=== PATIENT | male | born 1970 | race Caucasian/White ===

== ENCOUNTER 2024-06-06 12:30 | Emergency (ER) | payer BC, MEDICAID ==
[~2024-06-06] VITALS: Ht 180.3 cm; Wt 91.0 kg
[2024-06-06 12:35] VITALS: BP 149/91; PULSE 71; TEMP 98; O2SAT 97
[2024-06-06 14:36] VITALS: RESP 18
[2024-06-06] MEDS: ketorolac trometh 30MG/ML vial 30 MG/ML VIAL IM ONE (14:36)
== END 2024-06-06 15:42 | disposition home or self-care (01) ==
LOC: ER 12:31
DX: M77.8 Other enthesopathies, not elsewhere classified (principal); Z88.8 Allergy status to other drugs, medicaments and biological substances; M25.511 Pain in right shoulder
CPT/HCPCS: 73030; 96372; 99283; J1885

== ENCOUNTER 2025-04-19 08:30 | Outpatient (CLI) | payer BC ==
--- NOTE | 2025-04-19 11:41 | RADIOLOGY REPORT ---
CTA Chest with intravenous contrast INDICATION: THORACIC AORTIC ANEURYSM, WITHOUT RUPTURE COMPARISON: None TECHNIQUE: Multidetector spiral CTA of the chest was performed of the chest with intravenous contrast. Aorta ANGIOGRAPHY PROTOCOL was utilized using a bolus- tracking technique centered on the main pulmonary artery. Axial, coronal and sagittal multiplanar and MIP reformats were performed. Radiation Dose : 1. Chest: CTDI volume is 22.3 mGy. Dose-length product is 892.2 mGy*cm The dose indicators for CT are the volume Computed Tomography (CT) Dose Index (CTDIvol) and the Dose Length Product (DLP), and are measured in units of mGy and mGy-cm, respectively. These indicators are not patient dose, but values generated from the CT scanner acquisition factors. The report includes radiation exposure data for exposures received during this examination. FINDINGS: Pulmonary artery: No pulmonary embolism Lower neck: Normal thyroid. Lungs: No focal consolidation, pleural effusion or pneumothorax. Dependent atelectasis. Heart/Vascular Structures: Normal heart size. No pericardial effusion. Coronary artery calcifications. Vascular calcifications of the aorta. Ectasia of the ascending thoracic aorta measuring 3.9 cm. Lymph Nodes: No adenopathy Pleura: No pleural effusion or significant pneumothorax. Musculoskeletal: No acute osseous abnormality. Soft tissues: Normal. Upper abdomen: Limited portions of the upper abdomen are unremarkable. IMPRESSION: No pulmonary embolism. No acute thoracic finding. Ectasia of the ascending thoracic aorta measuring 3.9 cm.
== END 2025-04-19 23:59 | disposition home or self-care (01) ==
LOC: RAD 08:30
PROVIDERS: ATTEND Student in an Organized Health Care Education/Training Program
DX: I71.20 Thoracic aortic aneurysm, without rupture, unspecified (principal); I70.0 Atherosclerosis of aorta; I25.10 Atherosclerotic heart disease of native coronary artery without angina pectoris
CPT/HCPCS: 71275; Q9967